=== PATIENT | male | born 1955 | race Caucasian/White ===

== ENCOUNTER 2019-01-13 12:51 | Day surgery (SDC) | payer OTHER, SELFPAY ==
[2019-01-13] MEDS: SODIUM CHLORIDE 0.9% 1,000 ML 200 ML IV (13:40)
[2019-01-13 13:48] VITALS: BP 116/74; PULSE 56; RESP 20; TEMP 36.4; O2SAT 98
[2019-01-13 13:58] VITALS: BMI 38.6
--- NOTE | 2019-01-13 15:49 | PM.HP.1 ---
History of Present Illness Chief complaint: [id number] COLONOSCOPY Patient History Social History household members: significant other Family & Social History Social History: household members significant other Meds Home Medications Medication Instructions Recorded Confirmed Type hydrochlorothiazide 12.5 mg PO DAILY 01/13/19 01/13/19 History losartan 100 mg PO DAILY 01/13/19 01/13/19 History metoprolol succinate 25 mg PO DAILY 01/13/19 01/13/19 History Allergies Allergy/AdvReac Type Severity Reaction Status Date / Time No Known Drug Allergies Allergy Verified 01/13/19 13:49 Review of Systems Review of Systems All systems reviewed & are unremarkable except as noted in HPI and below Exam Vital Signs (past 8 hours): - 01/13/19 13:48 Temperature 97.6 F Pulse Rate 56 L Respiratory Rate 20 Blood Pressure 116/74 Pulse Oximetry 98 Oxygen Delivery Method Room Air Narrative Exam Narrative: Awake alert and oriented x3, pupils equal round reactive to light, oropharynx clear, heart regular rate and rhythm, lungs clear to auscultation bilaterally, abdomen nontender and nondistended, extremities without edema, no gross neurologic deficits noted Assessment & Plan Assessment & Plan narrative: Colon cancer screening, colonoscopy
[2019-01-13] MEDS: MIDAZOLAM 5 MG/5 ML VIAL IV (16:00)
[2019-01-13] MEDS: fentaNYL 250 MCG/5 ML INJ IV (16:01)
--- NOTE | 2019-01-13 16:12 | PM.OP.ENDO ---
Operative Date/Time/Diagnoses Date of procedure: 01/13/19 Procedure & Clinicians Study performed: Colonoscopy with snare polypectomy and biopsy Moderate conscious sedation was administered by the endoscopy nurse and supervised by the endoscopist. The following parameters were monitored: Oxygen saturation, heart rate, blood pressure, and response to care. Sedation: 5 mg IV midazolam, 100 mcg IV fentanyl Indications: Personal history of colon polyps. Last colonoscopy 2013 Procedure Notes Procedure in detail: Prior to the procedure, history and physical was performed, and patient medications and allergies were reviewed. Preprocedure nursing history and assessment was reviewed. Patient identification and proposed procedure were verified by the physician and nurse in the procedure room. The physical status of the patient was reassessed after the procedure. After informed consent was obtained including risks, benefits, and alternatives, the scope was passed under direct vision. Throughout the procedure, the patient's blood pressure, pulse, and oxygen saturations were monitored continuously. The colonoscope was introduced through the anus and advanced to the cecum as identified by the appendiceal orifice and ileocecal valve. The patient tolerated the procedure well. Bowel prep was deemed adequate to detect polyps greater than 5 mm. CATIE and perianal examinations were unremarkable. Retroflexion in the rectum revealed grade 2 internal hemorrhoids. Many medium mouthed sigmoid colon and ascending colon diverticulosis noted A 3 mm sessile transverse colon polyp was removed with the Jumbo biopsy forceps and retrieved A 4 mm sessile sigmoid colon polyp was removed with a cold snare and retrieved Impression: Internal hemorrhoids Sigmoid and ascending colon diverticulosis Two small polyps removed from the transverse and sigmoid colon Sedation minutes: 19 Complications: other (EBL minimal. No complications) Plan for aftercare: Follow-up pathology results Repeat colonoscopy in 5 years for screening purposes Resume home medications High fiber diet Patient has a contact number available for emergencies. The signs and symptoms of potential delayed complications were discussed with the patient. Return to normal activities tomorrow. Written discharge instructions were provided to the patient. Discharge home with escort
--- NOTE | 2019-01-13 16:15 | PATH_ITS ---
[facility] Accession Number: [id number] . 01 Material submitted: . PART A: colon - TRANSVERSE COLON POLYP PART B: sigmoid colon - SIGMOID COLON POLYP . 02 Diagnosis: A. Transverse Colon, Polyp: Tubular adenoma. . B. Sigmoid Colon, Polyp: Tubular adenoma. MRV/01/15/2019 . 02 Electronically signed: . Nickolas Schulz MD, PhD, Pathologist NPI- [id number] . 01 Gross description: . Part A: TRANSVERSE COLON POLYP: Received in formalin is 1 fragment(s) of yadav, soft tissue measuring 0.4 x 0.4 x 0.2 cm submitted entirely in 1 cassette(s) Part B: SIGMOID COLON POLYP: Received in formalin is 1 fragment(s) of yadav, soft tissue measuring 0.4 x 0.3 x 0.3 cm submitted entirely in 1 cassette(s) /CKI /CKI . 02 Pathologist provided ICD-10: D12.3, D12.5 . 02 CPT . 114493, 422355 Performed at: 01 [facility] [address] [facility], [place], [place] [id number] MD Troy Bae MD Phone: [phone] Performed at: 02 [facility] [place] [address] [place], [place] [id number] MD Loreto Biswas MD Phone: [phone]
[2019-01-13 16:17] VITALS: BP 121/75; PULSE 59; RESP 16; TEMP 37; O2SAT 95
[2019-01-13 16:21] VITALS: BP 127/80; PULSE 57; RESP 20; O2SAT 95
[2019-01-13 16:37] VITALS: BP 111/66; PULSE 54; RESP 17; TEMP 36.7; O2SAT 96
== END 2019-01-13 16:56 | disposition home or self-care (01) ==
PROVIDERS: PCP Physician Assistant Medical; Visit Provider Internal Medicine
PROC: 0DJD8ZZ Inspection of Lower Intestinal Tract, Via Natural or Artificial Opening Endoscopic (ICD-10-PCS; CPT 45378; principal; 2019-01-13 14:30)
DX: Z86.010 Personal history of colon polyps (principal); K57.30 Diverticulosis of large intestine without perforation or abscess without bleeding; K64.1 Second degree hemorrhoids; D12.3 Benign neoplasm of transverse colon; D12.5 Benign neoplasm of sigmoid colon
CPT/HCPCS: 45385; 45380; J2250; J3010